=== PATIENT | male | born 1985 | race Caucasian/White ===

== ENCOUNTER 2021-09-15 02:17 | Emergency (ER) | payer OTHER, SELFPAY ==
[2021-09-15 02:31] VITALS: BP 146/90; PULSE 93; RESP 16; TEMP 37.1; O2SAT 97
[2021-09-15] MEDS: predniSONE 20 MG TABLET 60 MG PO (03:05)
--- NOTE | 2021-09-15 03:35 | ED.ALLEREA ---
HPI - Allergic Reaction General Chief complaint: Allergic Reaction Stated complaint: allergic reaction, hives to left side of neck Time Seen by Provider: 09/15/21 02:28 History of Present Illness HPI narrative: Patient is a 35-year-old male who presents ER with concerns for allergic reaction. Reports he has been doing woodworking in his garage with karol. He is done was 2 days well. After the first day started developing some itching and hives to his neck may put topical steroid on that had mild improvement. He went back and did some additional standing. The entirety of his body was covered with the exception of his head. The exposed areas have now become even more red and irritated. They are pruritic. No. No fevers or chills or sweats. No previous exposures to karol until illness. He has taken a bath to try to wash the irritants off. He takes no home medications other than vitamin supplements which have not changed recently. No new perfumes or shampoos. No new face washes or soaps. Related Data Allergies Allergy/AdvReac Type Severity Reaction Status Date / Time Sulfa (Sulfonamide Allergy Unknown REACTION Unverified 09/13/15 15:09 Antibiotics) CHILD Review of Systems Constitutional: Constitutional: Denies chills and Denies fever(s) ENT: Denies dysphagia and Denies sore throat Respiratory: Respiratory: Denies cough, Denies dyspnea and Denies wheezing Integumentary/Breasts: Skin/Breast: Reports pruritus, Reports erythema and Reports rash PMFSH Past Medical History Medical History (Updated 09/15/21 @ 03:40 by Gerry Cintron MD) Healthy adult male Surgical History Surgical History (Updated 09/15/21 @ 03:37 by Gerry Cintron MD) History of tonsillectomy Social History Social History (Updated 09/15/21 @ 03:37 by Gerry Cintron MD) Smoking status: Never smoker Exam Narrative: GENERAL: Well-appearing, well-nourished, and in no acute distress. HEAD: Normocephalic, atraumatic. EYES: PERRL and EOMI. ENT: Mucous membranes moist. CHEST: Clear to auscultation. No respiratory distress. HEART: Regular rate and rhythm. Normal peripheral pulses. EXTREMITIES: Normal range of motion. No edema. SKIN: Warm, dry. Rash noted to the neck going posteriorly along the hairline. There is also arterial rash to the forehead and cheeks. Spares the chin. No vesicles or pustules. NEURO: Alert and oriented x3. Course Course Emergency Course: Suspect contact dermatitis. Recommend avoiding offending agent. Will place on prednisone taper. Vital Signs Vital signs: Vital Signs Temperature 98.8 F 09/15/21 02:31 Pulse Rate 93 09/15/21 02:31 Respiratory Rate 16 09/15/21 02:31 Blood Pressure 146/90 H 09/15/21 02:31 Pulse Oximetry 97 09/15/21 02:31 Temperature 98.8 F 09/15/21 02:31 Pulse Rate 93 09/15/21 02:31 Respiratory Rate 16 09/15/21 02:31 Blood Pressure 146/90 H 09/15/21 02:31 Pulse Oximetry 97 09/15/21 02:31 Discharge Plan Discharge Clinical Impression: Allergic reaction, Contact dermatitis Patient Disposition: Home, Self-Care Condition: Stable Instructions: Contact Dermatitis (ED), Acute Rash (ED) Additional Instructions: Return the ER if you have fever over 100.4 ?F, you cannot keep down food or water, you cannot breathe, you cannot swallow, or you have additional concerns. Avoid additional exposure to karol this is likely causing your skin irritation. Prescriptions: New prednisone 10 mg tablet See Rx Instructions .ROUTE .COMPLEX Qty: 45 RF: 0 Follow-up/Referrals: PHYSICIAN,CONFIGURATION MANAGEMENT ADMINISTRATOR [Primary Care Provider] - Dimitry George MD [Physician] - 1 Week
[2021-09-15 03:54] VITALS: BP 120/81; PULSE 81; RESP 18; O2SAT 99
== END 2021-09-15 03:55 | disposition home or self-care (01) ==
PROVIDERS: Emergency Provider Emergency Medicine
DX: L23.7 Allergic contact dermatitis due to plants, except food (principal)
CPT/HCPCS: 99283; J7512